=== PATIENT | female | born 1990 | race African-American/Black ===

== ENCOUNTER 2018-09-29 10:50 | Day surgery (SDC) | payer BC ==
[~2018-09-29] VITALS: Ht 160 cm; Wt 73.1 kg
[2018-09-29] VITALS (12 sets, daily range): BP systolic 115–144; BP diastolic 59–82; PULSE 64–84; RESP 13–19; Ht 160 cm; Wt 73.1 kg
--- NOTE | 2018-09-29 13:24 | HPN ---
Date/Time of Note Date/Time of Note DATE: 09/29/18 TIME: 13:24 Interval H&P Admission Note Pt. seen H&P reviewed: No system changes LUCHO GUZMAN MD Sep 29, 2018 13:24
--- NOTE | 2018-09-29 13:49 | PREAC ---
Date/Time of Note Date/Time of Note DATE: 09/29/18 TIME: 13:48 Anesthesia Eval and Record Evaluation Time Pre-Procedure Interview DATE: 09/29/18 TIME: 13:48 Age 28 Sex female NPO: 8 hrs Preoperative diagnosis vocal cord papilloma Planned procedure direct laryngoscopy, excision of papilloma Past Medical History Past Medical History: None Surgery & Anesthesia Issues No known issue Meds Anticoagulation: No Beta Addison within 24 hr: No Reason Beta Addison not given: Pt. not on B-Addison No Active Prescriptions or Reported Meds Meds reviewed: Yes Allergies Coded Allergies: No Known Allergy (Unverified , 09/29/18) Allergies Reviewed: Yes Labs/Studies Labs Reviewed: Reviewed by anesthesiologist test: Negative Pre-procedure Exam Last vitals Vital Signs Date Temp Pulse Resp B/P (MAP) Pulse Ox O2 O2 Flow FiO2 Time Delivery Rate 09/29/18 98.6 84 16 126/63 98 Room Air 11:05 (84) Airway: Adequate mouth opening, Adequate thyromental dist Mallampati: Mallampati I Teeth: Normal Lung: Normal Heart: Normal ASA Physical Status ASA physical status: 1 Emergency: None Planned Anesthetic General/MAC: ETT Planned Pain Management Parenteral pain med Pre-operative Attestations Prior to commencing anesthesia and surgery, the patient was re-evaluated, there was verification of: *The patient's identity *The results of appropriate recent lab work and preoperative vital signs *The above evaluation not changing prior to induction *Anesthetic plan, risk benefits, alternative and complications discussed with patient/family; questions answered; patient/family understands, accepts and wishes to proceed. RODNEY FULLER Sep 29, 2018 13:49
[2018-09-29] MEDS ORDERED: PROPOFOL 100 ML ONE (13:53)
[2018-09-29] MEDS ORDERED: LIDOCAINE 2% (SDV) 5 ML INJ ONE (13:56)
[2018-09-29] MEDS ORDERED: ROCURONIUM 50 MG INJ ONE (13:56)
[2018-09-29] MEDS ORDERED: FENTAnyl 50 MCG/ML VIAL ONE ×2 (13:57→14:47)
[2018-09-29] MEDS ORDERED: PHENYLephrine 0.5% 15 ML NAS SPRAY ONE (14:04)
[2018-09-29] MEDS ORDERED: LIDOCAINE 1%/EPI 30 ML INJ ONE (14:18)
[2018-09-29] MEDS ORDERED: ONDANSETRON 4 MG INJ ONE (14:50)
[2018-09-29] MEDS ORDERED: DEXAMETHASONE 4 MG/ML 5 ML INJ ONE (14:50)
[2018-09-29] MEDS ORDERED: GLYCOPYRROLATE 0.4 MG INJ ONE (15:45)
[2018-09-29] MEDS ORDERED: NEOSTIGMINE 3 MG/3 ML SYRINGE ONE (15:45)
--- NOTE | 2018-09-29 15:47 | SIPON ---
Date/Time of Note Date/Time of Note DATE: 09/29/18 TIME: 15:45 Operative Report Preoperative Diagnosis RRP Postoperative Diagnosis RRP Operation/Procedure Performed DL with papilloma excision Surgeon see signature line certified surgical assistant NONE Anesthesia: general Estimated blood loss: minimal Transfusion Required none Specimen Left posterior VF Right mid VF Right VF Lukens trap Left VF Lukens trap Grafts/Implants none Complications none LUCHO GUZMAN MD Sep 29, 2018 15:47
[2018-09-29] MEDS ORDERED: OXYCODONE/ACETAMINOPHEN (5/325) TAB PO PRN ×2 (16:00)
[2018-09-29] MEDS ORDERED: LABETALOL HCL 20MG INJ IV PRN (16:00)
[2018-09-29] MEDS ORDERED: FENTAnyl 50 MCG/ML VIAL IV PRN (16:00)
[2018-09-29] MEDS ORDERED: ALBUTEROL 0.083% (NEB) 2.5 MG/3 ML AMP HHN PRN (16:00)
[2018-09-29] MEDS ORDERED: EPHEDrine 25 MG/5 ML SYG IV PRN (16:00)
[2018-09-29] MEDS ORDERED: MEPERIDINE 25 MG INJ IV PRN (16:00)
[2018-09-29] MEDS ORDERED: hydrALAzine 20 MG INJ IV PRN (16:00)
[2018-09-29] MEDS ORDERED: DIPHENHYDRAMINE 50 MG INJ IV PRN (16:00)
[2018-09-29] MEDS ORDERED: ONDANSETRON 4 MG INJ IV PRN (16:00)
[2018-09-29] MEDS ORDERED: MIDAZOLAM 1 MG/ML 2 ML INJ IV PRN (16:00)
[2018-09-29] MEDS: FENTAnyl 50 MCG/ML VIAL IV PRN ×2 (16:12→16:33)
--- NOTE | 2018-09-29 16:19 | PAC ---
Date/Time of Note Date/Time of Note DATE: 09/29/18 TIME: 16:19 Post-Anesthesia Notes Post-Anesthesia Note Last documented vital signs Vital Signs Date Temp Pulse Resp B/P (MAP) Pulse Ox O2 O2 Flow FiO2 Time Delivery Rate 09/29/18 99.2 67 115/78 99 16:06 09/29/18 83 15 144/82 100 Room Air 15:53 (102) Activity: WNL Respiratory function: WNL Cardiovascular function: WNL Mental status: Baseline Pain reasonably controlled: Yes Hydration appropriate: Yes Nausea/Vomiting absent: Yes RODNEY FULLER Sep 29, 2018 16:19
--- NOTE | 2018-09-29 20:49 | OPR ---
DATE OF OPERATION: 09/29/2018 SURGEON: Lucho Berger. ANESTHESIOLOGIST: Dr. Alaniz. ANESTHESIA: General. PREOPERATIVE DIAGNOSES: 1. Recurrent respiratory papilloma. 2. Dysphonia. POSTOPERATIVE DIAGNOSES: 1. Recurrent respiratory papilloma. 2. Dysphonia. PROCEDURE: Direct laryngoscopy with excision of tumor with scope. INDICATION: This is a 26-year-old woman with recurrent respiratory papillomatosis who had undergone multiple surgeries for papilloma and presented to the outpatient clinic with worsening dysphonia and mildly increased dyspnea. 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 However, no further thera py was undertaken beyond the debulking that led to the diagnosis of dysplasia. I discussed with the patient and her mother that given her preop papilloma and the pathological diagnosis of dysplasia, I would pursue a rather aggressive ablative strategy, which would remove all the papilloma as well as a thin layer of tissue where the dysplasia was found. However, they had a strong desire to pursue al ternative/holistic treatment modalities such as CBD oil and therefore, they requested that I only rem ove the obvious papilloma and leave the underlying tissue undisturbed. 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 However, they were quite firmly opposed to a definitive surgery or use of a CO2 lase r and were just mainly interested in a gentle debulking of the disease burden. We had a quite thorou gh discussion of the risks, benefits, rationale and alternatives of surgery and these included but we re not limited to recurrence of the carcinoma, chipped teeth, cuts to the lips, tongue or other oral mucosa, airway compromise, dyspnea, dysphagia, worsening of voice, failure to improve the voice, blee ding, infection, scar including anterior glottic web, numbness and other complications of surgery or anesthesia that could even include . The patient did elect to proceed and signed informed conse nt was obtained. DESCRIPTION OF PROCEDURE: The patient was identified in the preoperative holding area and informed c onsent was confirmed. The patient was transferred to the operating table and all pressure points wer e carefully padded. General anesthesia was induced and the patient was orally intubated by the anest hesiologist with size 5.5 endotracheal tube. The eyes were protected by the anesthesiologist. The h ead of bed was rotated 90 degrees. The patient was draped for laryngoscopy in a routine manner. A p lastic tooth guard was utilized to protect the dentition. I inserted the Dedo laryngoscope and there was copious saliva that was suctioned out. The Dedo was passed towards the larynx, and thereafter s uspended to the bedside Kaplan stand. The papilloma burden at the outset was so severe that it could n ot be determined if the papilloma was emanating from the left side or right side or even if it was fr om the true vocal fold versus the supraglottis. I proceeded to take an initial biopsy of the very la rge papilloma that was based along the left vocal process after taking multiple bites with cup forcep s in this region. I was able to at least delineate the glottal introitus to compare the left versus right side. I then proceeded to take a biopsy specimen from the right mid third of the true vocal fo lds where there was a quite large papilloma. At this point, I could determine that the papilloma was essentially limited to the true vocal fold surface, but it was so large that the growths were nearly fully filling the space for the laryngeal ventricle, and they were also extending inferiorly into th e subglottis. It did not appear that the subglottis tissue itself was compromised by the disease, bu t rather that the disease that had started along the true vocal fold had grown to a large size such t hat it was extending inferiorly. At this time, I proceeded to use the bluepulse laryngeal microdebri minor in order to gently take down the papilloma cells. The electronic components assembler was used at the lowest RPM setting in order to quite gently remove the papilloma with no undue effects on the [place] vocal fold tissue. It should be noted that as I microdebrided away the papilloma. The underlying tissue did look rathe r scarred and there was essentially no normal appearing vocal fold tissue in sight. The lidocaine wi th epinephrine was injected in a subepithelial manner in order to help define the boundary between th e normal vocal fold tissue and the papilloma cells. The anterior commissure was extremely distorted and due to the large burden of disease. As I gently microdebrided, it became apparent that the papil samuel were mainly from the left anterior third of the true vocal fold and they were filling the space that would otherwise be considered the anterior commissure. As these were debrided, I was able to c ome to find a more normal appearance of the anterior commissure and I therefore elected to leave a sm aller amount of disease on the right side in placed instead of risking scar formation and thankfully, as basically the entirety in this area was coming from the large left-sided papilloma. At this poin t, essentially the operation was concluded. I was able to remove all the visible papilloma from the true vocal fold surface save for the very small area at the front of the right true vocal fold where I hoped to avoid any future scar development, and I applied Afrin on cottonoids in order to ensure he mostasis. I also applied lidocaine topically in order to prevent laryngospasm. At this point, all i nstruments were appropriately removed. There was no damage to the teeth or lips. The patient was re turned to the anesthesiologist and extubated without complication. All instrument and sponge counts were correct. PREOPERATIVE MEDICATION: None. DVT PROPHYLAXIS: SCDs. ESTIMATED BLOOD LOSS: Minimal. COMPLICATIONS: None. SPECIMEN: 1. 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 3. Right vocal fold Lukens trap. 4. Left vocal fold Lukens trap. DISPOSITION: Home. Dictated By: LUCHO PAUL/DANIELLE Conf#: [id number] DID#: [id number]
== END 2018-09-29 18:15 | disposition home or self-care (01) ==
LOC: SDS 10:50
PROVIDERS: ATTEND Otolaryngology
DX: R49.0 Dysphonia (principal)
CPT/HCPCS: 31541; 84703; 88104; 88305; J1100; J2405; J2710; J3010; Z7512; Z7610